=== PATIENT | female | born 1960 | race Caucasian/White ===

== ENCOUNTER 2018-02-18 13:07 | Observation (INO) | payer OTHER ==
[~2018-02-18] VITALS: Ht 162.6 cm; Wt 84.0 kg
[~2018-02-18 13:07] MED LIST: CLON1TAB3 PO; ESCI1TAB10 PO
[2018-02-18] MEDS ORDERED: ONDANSETRON INJ 2 MG/ML 2 ML VIAL IV STA (13:20)
[2018-02-18] MEDS ORDERED: ASPIRIN 81 MG CHEW PO STA (13:20)
[2018-02-18] MEDS ORDERED: SODIUM CHLORIDE 0.9% 1000ML 500 ML IV STA (13:20)
[2018-02-18] MEDS ORDERED: ACETAMINOPHEN 500 MG TAB PO STA (13:22)
[2018-02-18] MEDS ORDERED: NITROGLYCERIN 2% OINTMENT 30GM TUBE EXT ONE (13:30)
--- NOTE | 2018-02-18 13:46 | EMERGENCY ROOM VISIT NOTE ---
History Report prepared by Rose: Milton Orona Under the Supervision of: Dr. Sonido Carter M.D. First contact with patient: 13:14 Chief Complaint: CHEST PAIN Stated Complaint: CHEST TIGHTNESS, DIZZY History of Present Illness The patient is a 57 year old female who presents to the Emergency Room with complaints of constant chest pain that began a couple of days ago. She rates her pain as a 7/10 in severity. She reports her pain is worsened with standing up and relieved with laying down, The patient states that five days ago, when she was on a cruise, she felt she had "a ball of acid in her throat that would not go down". She reports that a day later she noticed that her stool was bright red in appearance. She states that since then, she has been experiencing dizziness, lightheadedness, nausea, left shoulder pain, left jaw pain, and shortness of breath. The patient states that she has also been experiencing a chest heaviness that is worsened with standing up and moving around. The reports that she returned from her cruise two days ago and her symptoms persisted. The patient states that she took an antacid for her symptoms without any relief. She states that she is currently experiencing a headache that is a 10/10 in severity. The patient states that she has not taken any medication today. She denies trauma, injury, vomiting, diarrhea, a history of GI bleeding, and a history of heart problems. Source of History: patient Onset: a couple of days ago Position: chest Symptom Intensity: 7/10 Quality: other (heavy) Timing: constant Modifying Factors (Worsening): other (standing up) Modifying Factors (Relieving): other (antacid) Associated Symptoms: + headache, + SOB, + nausea, + hematochezia, No vomiting, No diarrhea Note: Associated symptoms: left jaw pain, dizziness, lightheadedness, and "acid in throat" Review of Systems See HPI for pertinent positives & negatives. A total of 10 systems reviewed and were otherwise negative. Past Medical & Surgical Medical Problems: (1) Anxiety (2) Cervical strain (3) Chest pain (4) Closed head injury (5) Dizziness (6) Facial injury (7) History of depression (8) Restless leg syndrome Surgical Problems: (1) Hx of arthroscopy of right knee (2) Hx of laparoscopy (3) Hx of rotator cuff surgery (4) Hx of tonsillectomy Family History Cancer Social History Smoking Status: Current Every Day Smoker Alcohol Use: occasionally Marital Status: Housing Status: lives with family Occupation Status: unemployed Current/Historical Medications Scheduled Clonazepam (Clonazepam), 1 TAB PO HS Escitalopram Oxalate (Lexapro), 1 TAB PO DAILY Escitalopram Oxalate (Escitalopram Oxalate), 1 TAB PO DAILY Multiple Vitamin (Multivitamin), 1 TAB PO DAILY Allergies Coded Allergies: Sulfa Drugs (Verified Allergy, Unknown, HIVES, 02/18/18) Physical Exam Vital Signs Date Time Temp Pulse Resp B/P (MAP) Pulse Ox O2 Delivery O2 Flow Rate FiO2 02/18/18 15:15 75 121/69 94 Room Air 02/18/18 14:15 72 16 127/70 96 Room Air 02/18/18 13:53 72 20 139/94 93 Room Air 02/18/18 13:50 94 Room Air 02/18/18 13:09 36.6 80 18 155/93 96 Room Air Physical Exam GENERAL: Patient is in no acute distress. HEENT: No acute trauma, normocephalic atraumatic, mucous membranes moist, no nasal congestion, no scleral icterus. NECK: No stridor, no adenopathy, no meningismus, trachea is midline. LUNGS: Clear to auscultation bilaterally, no wheeze, no rhonchi, breath sounds equal. HEART: Without murmurs gallops or rubs, regular rate and rhythm. ABDOMEN: Soft, mildly tender in the epigastric, bowel sounds positive, no hernias, no peritonitis. EXTREMITIES: No cyanosis or edema, full range of motion of all the joints without pain or difficulty, no signs for acute trauma. NEUROLOGIC: Oriented x 3, no acute motor or sensory deficits, no focal weakness. SKIN: No rash, no jaundice, no diaphoresis. Medical Decision & Procedures ER Provider Diagnostic Interpretation: X-ray results as stated below per interpretation by me and the radiologist: CHEST ONE VIEW PORTABLE CLINICAL HISTORY: 57 years-old Female presenting with CHEST PAIN, chest tightness. TECHNIQUE: Portable upright AP view of the chest was obtained. COMPARISON: None. FINDINGS: Cardiomediastinal silhouette normal. Lungs and pleural spaces clear. Osseous structures normal. Upper abdomen normal. IMPRESSION: 1. No acute cardiopulmonary disease. Electronically signed by: Sandor Bentley M.D. 02/18/2018 1:43 PM Dictated Date/Time: 02/18/2018 1:42 PM Laboratory Results 02/18/18 13:55 02/18/18 13:55 Test 02/18/18 13:55 Red Blood Count 5.17 M/uL (4.2-5.4) Mean Corpuscular Volume 87.4 fL (80-100) Mean Corpuscular Hemoglobin 30.4 pg (25-34) Mean Corpuscular Hemoglobin Concent 34.7 g/dl (32-36) RDW Standard Deviation 45.6 fL (36.4-46.3) RDW Coefficient of Variation 14.2 % (11.5-14.5) Mean Platelet Volume 10.1 fL (7.4-10.4) Prothrombin Time 9.7 SECONDS (9.0-12.0) Prothromb Time International Ratio 0.9 (0.9-1.1) Activated Partial Thromboplast Time 27.7 SECONDS (21.0-31.0) Partial Thromboplastin Ratio 1.1 Anion Gap 7.0 mmol/L (3-11) Est Creatinine Clear Calc Drug Dose 84.9 ml/min Estimated GFR () 97.7 Estimated GFR (Non- 84.3 BUN/Creatinine Ratio 21.0 (10-20) Calcium Level 9.0 mg/dl (8.5-10.1) Total Bilirubin 0.2 mg/dl (0.2-1) Aspartate Amino Transf (AST/SGOT) 15 U/L (15-37) Alanine Aminotransferase (ALT/SGPT) 12 U/L (12-78) Alkaline Phosphatase 98 U/L (45-117) Troponin I < 0.015 ng/ml (0-0.045) Total Protein 6.7 gm/dl (6.4-8.2) Albumin 3.3 gm/dl (3.4-5.0) Globulin 3.4 gm/dl (2.5-4.0) Albumin/Globulin Ratio 1.0 (0.9-2) Lipase 191 U/L (73-393) Laboratory results reviewed by me. Medications Administered Medications (Trade) Dose Ordered Sig/Marjorie Route Start Time Stop Time Status Last Admin Dose Admin Sodium Chloride 500 ml @ 999 mls/hr Q31M STAT IV 02/18/18 13:20 02/18/18 13:50 DC 02/18/18 13:20 999 MLS/HR Ondansetron HCl (Zofran Inj) 4 mg NOW STAT IV 02/18/18 13:20 02/18/18 13:22 DC 02/18/18 13:52 4 MG Nitroglycerin (Nitroglycerin 2% Oint) 0.5 inch NOW ONCE EXT 02/18/18 13:30 02/18/18 17:05 DC 02/18/18 13:30 0.5 INCH Aspirin (Aspirin Chew) 324 mg NOW STAT PO 02/18/18 13:20 02/18/18 13:22 DC 02/18/18 13:52 324 MG Acetaminophen (Tylenol Tab) 1,000 mg NOW STAT PO 02/18/18 13:22 02/18/18 13:23 DC 02/18/18 14:05 1,000 MG ECG Per My Interpretation Indication: chest pain Rate (beats per minute): 72 Rhythm: normal sinus Findings: other (no PVCs, no ST elevation) ED Course 1315: The patient was evaluated in room A04B. A complete history and physical exam was performed. 1320: Ordered Aspirin 324 mg PO, Zofran Injection 4 mg IV, Sodium Chloride 500 ml @ 999 mls/hr IV. 1322: Ordered Tylenol Tab 1000 mg PO. 1330: Ordered Nitroglycerin 0.5 inch EXT. 1443: I reevaluated the patient and she feels improved since administration of medication. 1449: I discussed the patient's case with Jodie Montana PA-C Hospitalist. She understands the patient's condition and agrees to accept the patient. The patient will be further evaluated. Medical Decision The patient is a 57 year old female who presents to the Emergency Room with complaints of constant chest pain that began a couple of days ago. Differential diagnoses considered include cardiac ischemia, angina, anxiety, gastritis, reflux, ulcer, upper or lower GI bleeding, anemia, pneumonia, and IL. There is no leukocytosis or concerning anemia. No significant electrolyte abnormality, kidney failure, hepatitis or pancreatitis. EKG shows a normal sinus rhythm, no acute ischemia. Cardiac enzyme testing 1 is not consistent with acute cardiac injury. Chest x-ray does not show mediastinal widening, pneumonia or pneumothorax. The patient was given oral Zofran, oral aspirin and Nitropaste. She received oral Tylenol. She feels markedly improved, her chest pain is gone. The patient presents with precordial chest pain. I do think further cardiac workup is warranted. I spoke with the patient and case management. The on- call hospitalist was consulted and the case was discussed. Patient was reassured that her hemoglobin was not low. The blood in the stool is likely from the lower GI tract and likely unrelated to the precordial chest pain. Medication Reconcilliation Current Medication List: was personally reviewed by me Blood Pressure Screening Patient's blood pressure: Elevated blood pressure Referred to Hospitalist Consults Time Called: 1445 Consulting Physician: Jodie Montana PA-C Hospitalist Returned Call: 1449 I discussed the patient's case with Jodie Montana PA-C Hospitalist. She understands the patient's condition and agrees to accept the patient. The patient will be further evaluated. Impression Primary Impression: Precordial chest pain Scribe Attestation The scribe's documentation has been prepared under my direction and personally reviewed by me in its entirety. I confirm that the note above accurately reflects all work, treatment, procedures, and medical decision making performed by me. Departure Information Dispostion Being Evaluated By Hospitalist Referrals Naeem Patterson M.D.([facility]) (PCP) Patient Instructions My [facility]
[2018-02-18 14:21] LABS: HEMATOCRIT 45.2 % (37-47); HEMOGLOBIN 15.7 g/dL (12.0-16.0); MEAN CELL VOLUME 87.4 fL (80-100); MEAN CORPUSCULAR HEMOGLOBIN 30.4 pg (25-34); MEAN CORPUSCULAR HGB CONC 34.7 g/dl (32-36); MEAN PLATELET VOLUME 10.1 fL (7.4-10.4); PLATELET COUNT 276 K/uL (130-400); RED CELL DISTRIBUTION WIDTH CV 14.2 % (11.5-14.5); RED CELL DISTRIBUTION WIDTH SD 45.6 fL (36.4-46.3); WHITE BLOOD COUNT 8.66 K/uL (4.8-10.8)
[2018-02-18 14:22] LABS: INR 0.9 (0.9-1.1); PTT PATIENT 27.7 SECONDS (21.0-31.0)
[2018-02-18 14:28] LABS: ALBUMIN 3.3 gm/dl (3.4-5.0); ALT/SGPT 12 U/L (12-78); BLOOD UREA NITROGEN 17 mg/dl (7-18); CARBON DIOXIDE 26 mmol/L (21-32); CREATININE 0.79 mg/dl (0.60-1.20); GLUCOSE 95 mg/dl (70-99); LIPASE 191 U/L (73-393); POTASSIUM 3.8 mmol/L (3.5-5.1); SODIUM 138 mmol/L (136-145)
[2018-02-18 14:34] LABS: ALKALINE PHOSPHATASE 98 U/L (45-117); AST/SGOT 15 U/L (15-37); TOTAL PROTEIN 6.7 gm/dl (6.4-8.2)
[2018-02-18] MEDS ORDERED: GI COCKTAIL PO STA (15:43)
[2018-02-18] MEDS ORDERED: MAGNESIUM HYDROXIDE SUSP 30 ML UDC PO PRN (15:45)
[2018-02-18] MEDS ORDERED: ONDANSETRON INJ 2 MG/ML 2 ML VIAL IV PRN (15:45)
[2018-02-18] MEDS ORDERED: NITROGLYCERIN 0.4 MG SL PER TAB CHARGE SL PRN (15:45)
[2018-02-18] MEDS ORDERED: ALUMINUM/MAGNESIUM/SIMETH (MAALOX MAX) 30 ML UDC PO PRN (15:45)
[2018-02-18] MEDS ORDERED: KLN5 PO (15:48)
[2018-02-18] MEDS ORDERED: MULTTAB58 PO (15:48)
[2018-02-18] MEDS ORDERED: LXP10 PO (15:48)
--- NOTE | 2018-02-18 15:55 | DIAGNOSTIC IMAGING REPORT ---
CT SCAN OF THE BRAIN WITHOUT IV CONTRAST CLINICAL HISTORY: Headache. Dizziness. COMPARISON STUDY: CT of the brain dated 06/06/2014. TECHNIQUE: Unenhanced axial CT scan of the brain is performed from the vertex to the skull base. A dose lowering technique was utilized adhering to the principles of ALARA. CT DOSE: 614.27 mGy.cm FINDINGS: Brain parenchyma: The brain parenchyma is normal in appearance. There is no hemorrhage, mass effect, or evidence of acute territorial ischemia by CT criteria. Lincoln-white matter is preserved. No extra-axial fluid collection is seen. Ventricles, sulci, cisterns: Normal in configuration. Intracranial vasculature: The visualized intracranial vasculature at the skull base is normal in appearance. Calvarium: Unremarkable. Sinuses and mastoids: The visualized paranasal sinuses are clear. The mastoid air cells are well pneumatized. Orbits: The bony orbits are grossly intact. IMPRESSION: No acute intracranial abnormality. Electronically signed by: Sonido Boss M.D. 02/18/2018 3:53 PM Dictated Date/Time: 02/18/2018 3:51 PM
[2018-02-18] MEDS ORDERED: KETOROLAC TROMETHAMINE 30 MG/ML VIAL IV PRN (16:00)
[2018-02-18] MEDS ORDERED: ALUMINUM/MAGNESIUM SUSP 30 ML UDC ONE (16:06)
[2018-02-18] MEDS ORDERED: LIDOCAINE HCL 2% VISC SOLN 20 ML UDC ONE (16:07)
[2018-02-18 16:14] VITALS: O2SAT 93
[2018-02-18 16:15] VITALS: BP 123/76; PULSE 65; TEMP 36.6; Ht 162.6 cm; Wt 84.0 kg
--- NOTE | 2018-02-18 16:44 | History and Physical ---
History & Physical Date & Time of Service: Feb 18, 2018 at 15:48 Chief Complaint: Chest Tightness, Dizzy Primary Care Physician: Naeem Patterson M.D.([place]) History of Present Illness Source: patient, clinic records, hospital records Pt is 57 y/o F with PMH ROS, depression presented to ER with complaint of chest pain 5 days. Patient reports on 02/08/18 had flight to [place] and went on a cruise to the [facility]. 5 days into the cruise she developed "ball sensation" patient points to mid upper chest. She also reports sensation of increased acid and increased burping. Patient reports also with associated chest heaviness. States symptoms more prominent at night and tried taking ranitidine a couple of times with a little relief, but not complete relief. denies any shortness of breath or cough, or pleuritic chest pain. Denies food bolus or dysphagia or dysphasia. Denies history of GERD. Patient reports drinks 4 cups coffee daily. Does not usually consume alcohol however on the cruise was drinking 5-10 mixed drinks daily. Reports was eating very rich foods that she does not typically consume. Patient also complaining of frontal headache, dizziness with standing, and nausea 2 days. Denies vomiting. Used scopolamine patch while on cruise. History of RLS, states was walking a lot while on vacation in since having aching of bilateral hips down to bilateral legs and increased restless leg symptoms at night. Patient states did not sleep well on a cruise secondary to restless legs. Also is carrying her luggage. Denies any injury, or falls. Patient states was having constipation and 3 days ago was able to have a BM however straining to have BM and when wipes noticed bright red blood on toilet paper and blood mixing with stool. Has since been having daily BMs and denies any melena, hematochezia, diarrhea. Denies any lower extremity edema. Denies history of CAD or blood clots. Denies fever/chills, diaphoresis, vomiting, syncope, vision changes, neck pain, orthopnea, palpitations, cough, sore throat, choking, otalgia, rhinorrhea, abdominal pain, rectal pain, paresthesias, weakness, extremity weakness, extremity edema, rashes, urinary symptoms, weight loss, night sweats. Denies ill contacts. In ER patient given aspirin, Zofran, 500 mL NSS, Tylenol, nitro half inch paste. Patient reports less chest tightness now, still with headache. Past Medical/Surgical History Medical Problems: (1) Anxiety Status: Chronic (2) Cervical strain Status: Resolved (3) Closed head injury Status: Resolved (4) Facial injury Status: Resolved (5) History of depression Status: Chronic (6) Restless leg syndrome Status: Chronic Surgical Problems: (1) Hx of arthroscopy of right knee Status: Resolved (2) Hx of laparoscopy Permanent Comment: 2005 - removal adhesions Status: Resolved (3) Hx of rotator cuff surgery Status: Resolved (4) Hx of tonsillectomy Status: Resolved Family History Cancer Social History Smoking Status: Current Every Day Smoker (5 cigarettes daily, was smoking 0.75ppd x 26 years) Smokeless Tobacco Use: No Alcohol Use: socially Drug Use: none Marital Status: Housing status: lives with significant other Occupational Status: unemployed Allergies Coded Allergies: Sulfa Drugs (Verified Allergy, Unknown, HIVES, 02/18/18) Home Medications Scheduled Clonazepam (Clonazepam), 1 TAB PO HS Escitalopram Oxalate (Lexapro), 1 TAB PO DAILY Escitalopram Oxalate (Escitalopram Oxalate), 1 TAB PO DAILY Multiple Vitamin (Multivitamin), 1 TAB PO DAILY Review of Systems See HPI for pertinent positives & negatives. All other systems reviewed and were otherwise negative Physical Exam Vital Signs Date Time Temp Pulse Resp B/P (MAP) Pulse Ox O2 Delivery O2 Flow Rate FiO2 02/18/18 15:15 75 121/69 94 Room Air 02/18/18 14:15 72 16 127/70 96 Room Air 02/18/18 13:53 72 20 139/94 93 Room Air 02/18/18 13:50 94 Room Air 02/18/18 13:09 36.6 80 18 155/93 96 Room Air General Appearance: WD/WN, no apparent distress Head: normocephalic, atraumatic Eyes: normal inspection, PERRL, EOMI, sclerae normal ENT: hearing grossly normal, pharynx normal, + pertinent finding (mucous membranes moist) Neck: supple, no JVD, trachea midline Respiratory/Chest: lungs clear, normal breath sounds, no respiratory distress, + pertinent finding (mild tenderness to palpation mid to upper sternum, no rashes to chest noted) Cardiovascular: regular rate, rhythm, no murmur, normal peripheral pulses Abdomen/GI: normal bowel sounds, non tender, soft Extremities/Musculoskelatal: normal inspection, no calf tenderness, normal capillary refill, no pedal edema, normal range of motion, non-tender Neurologic/Psych: no motor/sensory deficits, alert, normal mood/affect, oriented x 3 Skin: normal color, warm/dry Diagnostics Laboratory Results Results Past 24 Hours Test 02/18/18 13:55 02/18/18 15:38 Range/Units White Blood Count 8.66 4.8-10.8 K/uL Red Blood Count 5.17 4.2-5.4 M/uL Hemoglobin 15.7 12.0-16.0 g/dL Hematocrit 45.2 37-47 % Mean Corpuscular Volume 87.4 80-100 fL Mean Corpuscular Hemoglobin 30.4 25-34 pg Mean Corpuscular Hemoglobin Concent 34.7 32-36 g/dl RDW Standard Deviation 45.6 36.4-46.3 fL RDW Coefficient of Variation 14.2 11.5-14.5 % Platelet Count 276 130-400 K/uL Mean Platelet Volume 10.1 7.4-10.4 fL Prothrombin Time 9.7 9.0-12.0 SECONDS Prothromb Time International Ratio 0.9 0.9-1.1 Activated Partial Thromboplast Time 27.7 21.0-31.0 SECONDS Partial Thromboplastin Ratio 1.1 Sodium Level 138 136-145 mmol/L Potassium Level 3.8 3.5-5.1 mmol/L Chloride Level 106 98-107 mmol/L Carbon Dioxide Level 26 21-32 mmol/L Anion Gap 7.0 3-11 mmol/L Blood Urea Nitrogen 17 7-18 mg/dl Creatinine 0.79 0.60-1.20 mg/dl Est Creatinine Clear Calc Drug Dose 84.9 ml/min Estimated GFR () 97.7 Estimated GFR (Non- 84.3 BUN/Creatinine Ratio 21.0 10-20 Random Glucose 95 70-99 mg/dl Calcium Level 9.0 8.5-10.1 mg/dl Total Bilirubin 0.2 0.2-1 mg/dl Aspartate Amino Transf (AST/SGOT) 15 15-37 U/L Alanine Aminotransferase (ALT/SGPT) 12 12-78 U/L Alkaline Phosphatase 98 45-117 U/L Troponin I < 0.015 0-0.045 ng/ml Total Protein 6.7 6.4-8.2 gm/dl Albumin 3.3 3.4-5.0 gm/dl Globulin 3.4 2.5-4.0 gm/dl Albumin/Globulin Ratio 1.0 0.9-2 Lipase 191 73-393 U/L Diagnostic Radiology CXR: IMPRESSION: 1. No acute cardiopulmonary disease. CT HEAD: IMPRESSION: No acute intracranial abnormality. EKG EKG: NSR, rate 72, no ST elevation noted read by cardiology: Normal sinus rhythm Normal ECG When compared with ECG of 11-DEC-2013 13:03, No significant change was found Confirmed by MICK GONZALES ([id number]) on 02/18/2018 2:59:07 PM Impression Assessment and Plan CHEST PAIN R/O ACS. Risk factors: tobacco use DDX: GERD, anxiety, musculoskeletal Pt with mid sternal CP x 5 days with associated "lump" sensation. Initial troponin negative. EKG without ST elevation. In ER given ASA, zofran, 500ml NSS , Tylenol and nitro 0.5" paste. Pt reports decreased CP. Suspect GERD with pt symptoms and recent increased ETOH use -GI cocktail trial -Pending D-dimer -Monitor Vitals -Repeat EKG in am -Will trend troponin -echo -lipid panel in am -ASA -Nitro prn CP and repeat EKG for CP -Maalox prn heartburn -pepcid LOWERY/DIZZY Pt reports frontal LOWERY and dizziness with standing x 2 days. Given Tylenol in ER without much relief of LOWERY. Electrolytes WNL. Hgb: 15 -Negative CT head -orthostatics ordered -IVF -morphine prn pain HEMATOCHEZIA Pt with bright red blood noted on toilet paper and mixed in with stool 3 days ago after constipation and straining to have BM. Since with normal BM's without melena or hematochezia. Suspect hemorrhoidal bleeding with constipation. Hgb: 15 today. -Hemoccult stool -monitor CBC DEPRESSION -continue lexapro RLS -continue klonopin HS prn restless legs DVT Prophylaxis -lovenox SQ Disposition admit tele Full Code Follows with Dr Patterson for routine care Pt was seen with Dr Brewer. See addendum Attending Note: Patient is a 57 yr yr female who was recently on a Cruise presents with atypical chest pain which improved with NTG and Antacids associated with dizziness, nausea, neck discomfort. Patient was drinking alcohol and Coffee on a daily basis while on the cruise and is a current smoker. Denies any CAD in the past. Also reports mild epigastric abdominal pain, increased burping, and 1 episode of noticing bright red blood on toilet paper, stools after straining secondary to constipation. She reports frontal headache 10/10, no change in vision, which is worse after NTG patch but denies any history of migraine. Physical Exam: Vitals signs as noted above General Appearance:Moderately built and nourished, no apparent distress Head: normocephalic, Atraumatic Eyes: normal inspection, EOMI, PERRL Neck: supple, Trachea midline Respiratory/Chest: Normal breath sounds, CTA, No accessory muscle use Cardiovascular: S1, S2, No murmur Abdomen/GI:Soft, mild epigastric tender, Bowel sounds present Extremities/Musculoskelatal:normal inspection, no edema Neurologic/Psych:AAOX3, grossly no focal neurological deficits Skin:normal color,warm Assessment and Plan: Atypical Chest pain: R/O ACS DD: GERD, costochondritis D-Dimer pending CXR: No acute cardiopulmonary disease 1st Troponin negative Trend cardiac enzymes Check ECHO ASA Consider Cardiology eval if necessary Hematochezia: Likely 2/2 Hemorrhoids No active bleeding Hb stable May need colonoscopy as outpatient I personally reviewed the record. Patient is interviewed and examined at bedside. Patient's care is coordinated with Evelin PICKARD. Please refer to the documentation above for details of patient's presentation and for discussion of other issues. Resuscitation Status Full Code VTE Prophylaxis Will order VTE Prophylaxis: Yes Additional Copies To Naeem Patterson M.D. ([facility])
[2018-02-18] MEDS ORDERED: SODIUM CHLORIDE 0.9% 1000ML 1,000 ML IV SCH (16:45)
[2018-02-18] MEDS ORDERED: ALUMINUM/MAGNESIUM SUSP 18 ML, LIDOCAINE HCL 2% VISCOUS SOLN 6 ML, BARCODE IDENTIFIER 1 EA PO ONE ×2 (16:45)
[2018-02-18] MEDS ORDERED: ENOXAPARIN 40 MG/0.4 ML SYR SC SCH (17:00)
[2018-02-18] MEDS ORDERED: MoRPHine SULFATE 2 MG/ML CARP IV PRN (17:15)
[2018-02-18] MEDS ORDERED: FAMOTIDINE IV INJ 20 MG in DEXTROSE 5% 100ML 100 ML IV SCH (18:00)
[2018-02-18] MEDS ORDERED: IV FLUIDS COMPLETED PRN (18:15)
[2018-02-18 19:25] VITALS: BP_SYST 136; BP_SYST 138; BP_SYST 144; BP_DIAS 86; BP_DIAS 89; BP_DIAS 92; PULSE 70; TEMP 36.9; O2SAT 96
[2018-02-18] MEDS: ACETAMINOPHEN 325 MG TAB PO PRN (19:36)
[2018-02-18] MEDS ORDERED: CLONAZEPAM 0.5 MG TAB PO SCH (21:00)
[2018-02-19 00:28] VITALS: BP 110/61; PULSE 69; TEMP 36.5; O2SAT 95
[2018-02-19] MEDS: ACETAMINOPHEN 325 MG TAB PO PRN (02:49)
[2018-02-19 03:49] VITALS: BP 127/67; PULSE 76; TEMP 36.7; O2SAT 95
[2018-02-19 05:43] LABS: HEMATOCRIT 43.2 % (37-47); HEMOGLOBIN 14.4 g/dL (12.0-16.0); MEAN CELL VOLUME 88.2 fL (80-100); MEAN CORPUSCULAR HEMOGLOBIN 29.4 pg (25-34); MEAN CORPUSCULAR HGB CONC 33.3 g/dl (32-36); PLATELET COUNT 268 K/uL (130-400); RED CELL DISTRIBUTION WIDTH CV 14.3 % (11.5-14.5); RED CELL DISTRIBUTION WIDTH SD 46.1 fL (36.4-46.3); WHITE BLOOD COUNT 8.23 K/uL (4.8-10.8)
[2018-02-19] MEDS ORDERED: FAMOTIDINE IV INJ 20 MG in SYRINGE 3 ML IV SCH (06:00)
[2018-02-19 06:18] LABS: CALCIUM 8.6 mg/dl (8.5-10.1); CREATININE 0.76 mg/dl (0.60-1.20); POTASSIUM 4.2 mmol/L (3.5-5.1)
[2018-02-19 07:37] VITALS: BP 124/74; PULSE 69; TEMP 36.7; O2SAT 94
[2018-02-19] MEDS ORDERED: MULTIVITAMIN TAB PO SCH (09:00)
[2018-02-19] MEDS ORDERED: ESCITALOPRAM OXALATE 20 MG TAB PO SCH (09:00)
[2018-02-19] MEDS ORDERED: ASPIRIN 81 MG ECTAB PO SCH (09:00)
[2018-02-19] MEDS ORDERED: ESCITALOPRAM OXALATE 10 MG TAB PO SCH (09:00)
--- NOTE | 2018-02-19 09:40 | ECHOCARDIOGRAM REPORT ---
*NOTICE TO RECEIVING [employer] This information is strictly Confidential and protected under [place] law. [place] law prohibits you from making any further disclosure of this information unless further disclosure is expressly permitted by the written consent of the person to whom it pertains or is authorized by law. A general authorization for the release of medical or other information is not sufficient for this purpose. Hospital accepts no responsibility if the information is made available to any other person, INCLUDING THE PATIENT. Interpretation Summary * Name: WILLIAMS BURT Study Date: 02/19/2018 07:35 AM BP: 123/76 mmHg * Patient Location: C.2E\S\E204\S\1 HR: 65 * : 1960 (M/d/yyyy) Gender: Female Height: 64 in * Age: 57 yrs Ethnicity: [place] Weight: 187 lb * Ordering Physician: Evelin Dai * Referring Physician: Self, Referred * Performed By: Ernestine Nicole RDCS * * Reason For Study: Chest pain * BSA: 1.9 m2 * -- Conclusions -- * Normal LV chamber size and wall thickness. * Normal LV systolic function, EF 60-65%. * No segmental left ventricular wall motion abnormalities are noted. * Normal diastolic function. * Mild aortic valve sclerosis without stenosis. * Mild mitral annular calcificatons. Procedure Details * A complete two-dimensional transthoracic echocardiogram was performed (2D, M-mode, Doppler and color flow Doppler). Left Ventricle * The left ventricle is normal in size. * There is normal left ventricular wall thickness. * Ejection Fraction = 60-65%. * Left ventricular systolic function is normal. * No segmental left ventricular wall motion abnormalities are noted. * The left ventricular wall motion is normal. Right Ventricle * The right ventricular cavity size is normal (basal dimension <4.2 cm in right ventricular apical 4-chamber view). * The right ventricular systolic function is normal as assessed by tricuspid annular plane systolic excursion (TAPSE) (normal >1.5 cm). Atria * The left atrial size is normal. * Right atrial size is normal. * No ASD detected; PFO is not assessed. Mitral Valve * There is mild mitral annular calcification. * There is no mitral valve stenosis. * There is no mitral regurgitation noted. Tricuspid Valve * The tricuspid valve is normal in structure and function. Aortic Valve * The aortic valve is trileaflet. * Aortic valve sclerosis mild, without significant aortic valvular stenosis. * There is no significant aortic regurgitation. Pulmonic Valve * The pulmonary valve is not well seen, but the Doppler examination is normal without significant regurgitation or stenosis. Great Vessels * The aortic root and proximal ascending aorta are normal sized. Pericardium/Pleural * There is no pericardial effusion. Left Ventricular Diastolic Function * Pulse wave TDI of the anterior and posterior mitral annulas demonstrates normal LV relaxation MMode 2D Measurements and Calculations IVSd 0.78 cm LVIDd 4.2 cm LVIDs 2.7 cm LVPWd 1.1 cm IVS/LVPW 0.72 FS 35.2 % EDV(Teich) 78.2 ml ESV(Teich) 27.4 ml EF(Teich) 64.9 % EDV(cubed) 73.6 ml ESV(cubed) 20.0 ml EF(cubed) 72.8 % LV mass(C)d 124.0 grams LV mass(C)dI 65.2 grams/m\S\2 SV(Teich) 50.8 ml SI(Teich) 26.7 ml/m\S\2 SV(cubed) 53.6 ml SI(cubed) 28.2 ml/m\S\2 Ao root diam 2.8 cm Ao root area 6.2 cm\S\2 ACS 2.0 cm LA dimension 3.2 cm asc Aorta Diam 2.9 cm LA/Ao 1.1 LVOT diam 2.0 cm LVOT area 3.1 cm\S\2 LVAd ap4 25.8 cm\S\2 LVLd ap4 7.7 cm EDV(MOD-sp4) 70.4 ml EDV(sp4-el) 73.5 ml LVAs ap4 14.4 cm\S\2 LVLs ap4 6.2 cm ESV(MOD-sp4) 28.2 ml ESV(sp4-el) 28.7 ml EF(MOD-sp4) 60.0 % EF(sp4-el) 61.0 % LVAd ap2 26.4 cm\S\2 LVLd ap2 6.7 cm EDV(MOD-sp2) 86.2 ml EDV(sp2-el) 88.1 ml LVAs ap2 14.9 cm\S\2 LVLs ap2 5.4 cm ESV(MOD-sp2) 34.5 ml ESV(sp2-el) 35.1 ml EF(MOD-sp2) 59.9 % EF(sp2-el) 60.2 % LVLd %diff -14.30 % EDV(MOD-bp) 84.7 ml LVLs %diff -15.17 % ESV(MOD-bp) 33.4 ml EF(MOD-bp) 60.5 % SV(MOD-sp4) 42.2 ml SI(MOD-sp4) 22.2 ml/m\S\2 SV(MOD-sp2) 51.7 ml SI(MOD-sp2) 27.2 ml/m\S\2 SV(MOD-bp) 51.3 ml SI(MOD-bp) 27.0 ml/m\S\2 SV(sp4-el) 44.8 ml SI(sp4-el) 23.6 ml/m\S\2 SV(sp2-el) 53.0 ml SI(sp2-el) 27.9 ml/m\S\2 Doppler Measurements and Calculations MV E max prudencio 90.7 cm/sec MV A max prudencio 75.2 cm/sec MV E/A 1.2 MV dec time 0.23 sec Ao V2 max 144.4 cm/sec Ao max PG 8.3 mmHg Ao max PG (full) 4.9 mmHg LEVAR(V,A) 2.0 cm\S\2 LEVAR(V,D) 2.0 cm\S\2 LV V1 max PG 3.4 mmHg LV V1 max 92.6 cm/sec PA V2 max 77.4 cm/sec PA max PG 2.4 mmHg PA acc slope 193.7 cm/sec\S\2 PA acc time 0.23 sec PI max prudencio 191.4 cm/sec PI max PG 14.7 mmHg PI dec slope 291.9 cm/sec\S\2 PI P1/2t 192.1 msec TR max prudencio 172.3 cm/sec PA pr(Accel) -22.41 mmHg
[2018-02-19 11:42] VITALS: BP 116/73; PULSE 69; TEMP 36.8; O2SAT 95
--- NOTE | 2018-02-19 11:42 | Gastrointestinal Consultation ---
Gastrointestinal Consultation Date of Consultation: Feb 19, 2018 Attending Physician: Clyde Song Consulting Physician: Fabian Hay Reason for Consultation: Dysphagia History of Present Illness Patient is a 57 year old female w PMHx of anxiety, cervical strain, head/facial injury, RLS who presented to ED w c/o chest tightness and dizziness. She was in middle of a cruise to the [facility] and felt there's a "ball sensation" on neck with increased reflux and burping. She had associated chest tightness as well. Cardiac workup so far negative. In the cruise, she tried taking Ranitidine for suspected GERD symptoms and it did make her symptoms get felt a bit better but not completely resolved. She never had any hx of dysphagia, food bolus before. Denies odynophagia, abd pain, n/v, bowel habit changes. She managed to tolerate eating eggs w/o chocking/coughing this morning. Past Medical/Surgical History Medical Problems: (1) Precordial chest pain Status: Acute Past Medical History: See above. Past Surgical History: R knee arthroscopy, rotator cuff surgery, tonsillectomy Family History Cancer Social History Smoking Status: Current Every Day Smoker (5 cigarettes daily, was smoking 0.75ppd x 26 years) Alcohol Use: occasionally Drug Use: none Marital Status: Housing Status: lives with family Occupation Status: unemployed Allergies Coded Allergies: Sulfa Drugs (Verified Allergy, Unknown, HIVES, 02/18/18) Current Medications Home Meds and Scripts Medications Dose Route/Sig Max Daily Dose Days Date Category Dose Instructions Multivitamin (Multiple Vitamin) 1 Tab Tab 1 Tab PO DAILY 02/18/18 Reported Escitalopram Oxalate 10 Mg Tab 1 Tab PO DAILY 02/18/18 Reported Clonazepam 0.5 Mg Tab 1 Tab PO HS 02/18/18 Reported prn anxiety or restless legs Lexapro (Escitalopram Oxalate) 20 Mg Tab 1 Tab PO DAILY 08/17/11 Reported Review of Systems Constitutional: No fever, No chills ENT: + see HPI, + trouble swallowing Respiratory: No cough, No shortness of breath Cardiac: No chest pain Abdomen: No pain, No nausea, No vomiting Skin: No rash, No itch, No jaundice Physical Exam Date Time Temp Pulse Resp B/P (MAP) Pulse Ox O2 Delivery O2 Flow Rate FiO2 3/28/18 08:00 Room Air 02/19/18 07:37 36.7 69 16 124/74 (91) 94 Room Air 02/19/18 04:00 Room Air 02/19/18 03:49 36.7 76 16 127/67 (87) 95 02/19/18 00:28 36.5 69 16 110/61 (77) 95 Room Air 02/18/18 23:59 Room Air 02/18/18 20:00 Room Air 02/18/18 19:25 36.9 70 16 138/86 (103) 96 Room Air 136/89 (105) 144/92 (109) 02/18/18 16:15 36.6 65 16 123/76 Room Air 02/18/18 16:14 76 127/79 93 02/18/18 15:15 75 121/69 94 Room Air 02/18/18 14:15 72 16 127/70 96 Room Air 02/18/18 13:53 72 20 139/94 93 Room Air 02/18/18 13:50 94 Room Air 02/18/18 13:09 36.6 80 18 155/93 96 Room Air General Appearance: WD/WN, no apparent distress Eyes: normal inspection, PERRL, EOMI ENT: pharynx normal Neck: supple, no JVD, trachea midline Respiratory/Chest: normal breath sounds, no respiratory distress, no accessory muscle use Cardiovascular: regular rate, rhythm, no edema, no gallop, no murmur Abdomen: normal bowel sounds, non tender, soft Extremities: normal inspection, no pedal edema, no calf tenderness Neurologic/Psych: alert, normal mood/affect, oriented x 3 Skin: normal color, no jaundice, no rash Laboratory Results Last 24 Hours Test 02/18/18 13:55 02/18/18 19:56 02/19/18 02:10 02/19/18 05:15 White Blood Count 8.66 K/uL 8.23 K/uL Red Blood Count 5.17 M/uL 4.90 M/uL Hemoglobin 15.7 g/dL 14.4 g/dL Hematocrit 45.2 % 43.2 % Mean Corpuscular Volume 87.4 fL 88.2 fL Mean Corpuscular Hemoglobin 30.4 pg 29.4 pg Mean Corpuscular Hemoglobin Concent 34.7 g/dl 33.3 g/dl RDW Standard Deviation 45.6 fL 46.1 fL RDW Coefficient of Variation 14.2 % 14.3 % Platelet Count 276 K/uL 268 K/uL Mean Platelet Volume 10.1 fL 10.0 fL Prothrombin Time 9.7 SECONDS Prothromb Time International Ratio 0.9 Activated Partial Thromboplast Time 27.7 SECONDS Partial Thromboplastin Ratio 1.1 D-Dimer 360 ug/L FEU Sodium Level 138 mmol/L 140 mmol/L Potassium Level 3.8 mmol/L 4.2 mmol/L Chloride Level 106 mmol/L 108 mmol/L Carbon Dioxide Level 26 mmol/L 26 mmol/L Anion Gap 7.0 mmol/L 6.0 mmol/L Blood Urea Nitrogen 17 mg/dl 14 mg/dl Creatinine 0.79 mg/dl 0.76 mg/dl Est Creatinine Clear Calc Drug Dose 84.9 ml/min 87.7 ml/min Estimated GFR () 97.7 102.3 Estimated GFR (Non- 84.3 88.3 BUN/Creatinine Ratio 21.0 17.8 Random Glucose 95 mg/dl 89 mg/dl Calcium Level 9.0 mg/dl 8.6 mg/dl Total Bilirubin 0.2 mg/dl Aspartate Amino Transf (AST/SGOT) 15 U/L Alanine Aminotransferase (ALT/SGPT) 12 U/L Alkaline Phosphatase 98 U/L Troponin I < 0.015 ng/ml < 0.015 ng/ml < 0.015 ng/ml Total Protein 6.7 gm/dl Albumin 3.3 gm/dl Globulin 3.4 gm/dl Albumin/Globulin Ratio 1.0 Lipase 191 U/L Hepatitis C Antibody Screen NEG Triglycerides Level 156 mg/dl Cholesterol Level 216 mg/dl HDL Cholesterol 42 mg/dl LDL Cholesterol, Calculated 143 mg/dl VLDL Cholesterol, Calculated 31 mg/dl Cholesterol/HDL Ratio 5.1 Impression Patient is a 57 year old female seen for dysphagia, globus sensation. Also had chest tightness but cardiac workup so far negative. She did have some symptoms relief on Ranitidine. Plan - She will be discharged today. We can plan on EGD eval within a week's time. - May DC on antiacid (Protonix once daily). - Advised to stick to slippery, soft diet. I performed a history and physical examination of the patient, including specifically on physical exam - no abdominal tenderness. I have discussed the patient's management with TRI Mckeon. Please refer to the nurse practitioner's note for the documented findings and plan of care. Patient was on a cruise recently had excessive alcohol use, now reports dysphagia and globus sensation. She wants to go home and prefers the EGD as outpatient. Currently not obstructed and tolerates soft diet. Needs PO PPI and EGD as OP.
[2018-02-19 14:00] VITALS: BP 116/73; PULSE 69; TEMP 36.8; O2SAT 95
--- NOTE | 2018-02-19 15:04 | Progress Note ---
Medicine Progress Note Date & Time of Visit: Feb 19, 2018 at 14:28. Subjective Pt was seen and examined Lying in bed with no distress Pt said that early today when she was eating breakfast she said that the food stuck in his throat and take awhile to go down Pt said that she does not have any chest pain denies any SOB, palpitation, dizziness and SOB Objective Last 8 Hrs Date Time Temp Pulse Resp B/P (MAP) Pulse Ox O2 Delivery O2 Flow Rate FiO2 02/19/18 14:00 36.8 69 16 95 Room Air 02/19/18 12:00 Room Air 02/19/18 11:42 36.8 69 16 116/73 (87) 95 Room Air 02/19/18 08:00 Room Air 02/19/18 07:37 36.7 69 16 124/74 (91) 94 Room Air Physical Exam: General- No acute distress Head- atraumatic Eyes- PERRL, EOMI ENT- oropharynx clear Neck- supple, no JVD Lungs- clear to auscultation Heart- regular rhythm Abdomen- normal bowel sounds, soft Extremities- no calf tenderness Neuro- alert, oriented x 3; PERRL, EOMI Skin- warm & dry Laboratory Results: Last 24 Hours Test 02/18/18 19:56 02/19/18 02:10 02/19/18 05:15 Troponin I < 0.015 ng/ml < 0.015 ng/ml Hepatitis C Antibody Screen NEG White Blood Count 8.23 K/uL Red Blood Count 4.90 M/uL Hemoglobin 14.4 g/dL Hematocrit 43.2 % Mean Corpuscular Volume 88.2 fL Mean Corpuscular Hemoglobin 29.4 pg Mean Corpuscular Hemoglobin Concent 33.3 g/dl RDW Standard Deviation 46.1 fL RDW Coefficient of Variation 14.3 % Platelet Count 268 K/uL Mean Platelet Volume 10.0 fL Sodium Level 140 mmol/L Potassium Level 4.2 mmol/L Chloride Level 108 mmol/L Carbon Dioxide Level 26 mmol/L Anion Gap 6.0 mmol/L Blood Urea Nitrogen 14 mg/dl Creatinine 0.76 mg/dl Est Creatinine Clear Calc Drug Dose 87.7 ml/min Estimated GFR () 102.3 Estimated GFR (Non- 88.3 BUN/Creatinine Ratio 17.8 Random Glucose 89 mg/dl Calcium Level 8.6 mg/dl Triglycerides Level 156 mg/dl Cholesterol Level 216 mg/dl HDL Cholesterol 42 mg/dl LDL Cholesterol, Calculated 143 mg/dl VLDL Cholesterol, Calculated 31 mg/dl Cholesterol/HDL Ratio 5.1 Assessment & Plan ATYPICAL CHEST DISCOMFORT Mostly related to dysphagia Troponinx2 negative EKG showed no ischemic changes LDL 143, Chol 216, HDL 42 Continue aspirin ECHO showed * Normal LV chamber size and wall thickness. * Normal LV systolic function, EF 60-65%. * No segmental left ventricular wall motion abnormalities are noted. * Normal diastolic function. * Mild aortic valve sclerosis without stenosis. * Mild mitral annular calcificatons. Dysphagia Food stuck in her throat this morning GI consulting and recommending to get EGD in a few weeks as an outpatient Speech on board Schedule for video and barium swallow on March 03 @ : Continue ranitidine daily DYSLIPIDEMIA LDL 143 Advised on low cholesterol diet Repeat lipip panel btw 3 to 6 months, if not at goal, will start on statin LOWERY ASSOCIATED WITH DIZZINESS Seems to related to sinus congestion CT head showed no acute intracranial abnormality Stable HEMATOCHEZIA Hgb stable DEPRESSION Continue lexapro RLS Continue klonopin HS prn restless legs DVT Prophylaxis Lovenox SQ Disposition Follow up with Dr. De Santiago (Dr. Patterson Colleague) on 02/25 @ 11:00 AM\ Follow up with Gastro for EGD Schedule for video and barium swallow on March 03 @ : Consultants: Gastro Speech Current Inpatient Medications: Current Inpatient Medications Medications (Trade) Dose Ordered Sig/Marjorie Route Start Time Stop Time Status Last Admin Dose Admin Enoxaparin Sodium (Lovenox Inj) 40 mg Q24H SC 02/18/18 17:00 03/20/18 16:59 02/18/18 17:40 40 MG Acetaminophen (Tylenol Tab) 650 mg Q4H PRN PO 02/18/18 15:45 03/20/18 15:44 02/19/18 02:49 650 MG Al Hydrox/Mg Hydrox/Simethicone (Maalox Max Susp) 15 ml Q4H PRN PO 02/18/18 15:45 03/20/18 15:44 Magnesium Hydroxide (Milk Of Magnesia Susp) 30 ml Q12H PRN PO 02/18/18 15:45 03/20/18 15:44 Ondansetron HCl (Zofran Inj) 4 mg Q6H PRN IV 02/18/18 15:45 03/20/18 15:44 Nitroglycerin (Nitrostat Tab) 0.4 mg UD PRN SL 02/18/18 15:45 03/20/18 15:44 Aspirin (Ecotrin Tab) 81 mg QAM PO 02/19/18 09:00 03/21/18 08:59 02/19/18 07:57 81 MG Clonazepam (Klonopin Tab) 0.5 mg HS PO 02/18/18 21:00 03/20/18 20:59 02/18/18 21:12 0.5 MG Escitalopram Oxalate (Lexapro Tab) 10 mg DAILY PO 02/19/18 09:00 03/21/18 08:59 02/19/18 07:57 10 MG Escitalopram Oxalate (Lexapro Tab) 20 mg DAILY PO 02/19/18 09:00 03/21/18 08:59 02/19/18 07:57 20 MG Multivitamins (Multivitamin Tab) 1 tab DAILY PO 02/19/18 09:00 03/21/18 08:59 02/19/18 07:57 1 TAB Morphine Sulfate (MoRPHine SULFATE INJ) 1 mg Q6 PRN IV 02/18/18 17:15 03/04/18 17:14 Miscellaneous (Iv Fluids Completed) 1 ea PRN PRN N/A 02/18/18 18:15 02/18/19 18:14 Famotidine 20 mg/ Syringe 5 ml @ 2.5 mls/min Q12H IV 02/19/18 06:00 03/21/18 05:59 02/19/18 05:45 2.5 MLS/MIN
[2018-02-19] MEDS ORDERED: RANI150T85 PO (15:31)
--- NOTE | 2018-02-19 15:39 | Discharge Instructions ---
Discharge Instructions Date of Service Feb 19, 2018. Admission Reason for Admission: Chest Pain, Dizziness Discharge Discharge Diagnosis / Problem: Atypical chest discomfort, Dysphagia Discharge Goals Goal(s): Decrease discomfort, Improve function, Improve disease control Activity Recommendations Activity Limitations: resume your previous activity (as tolerated) . Instructions / Follow-Up Instructions / Follow-Up Follow up with Dr. De Santiago (Dr. Patterson Colleague) on 02/25 @ 11:00 AM\\ Follow up with Gastroenterology for Endoscopy Schedule for video and barium swallow on March 03 @ 10:30 AM Continue ranitidine daily Continue soft diet intake for now Avoid food that can trigger your symptoms (chocolate, caffeine, alcohol, acidic and/or spicy foods) Current Hospital Diet Patient's current hospital diet: AHA Diet (Heart Healthy) Discharge Diet Recommended Diet: AHA Diet (Heart Healthy) Pending Studies Studies pending at discharge: no Laboratory Results Lipid Panel Test 02/19/18 05:15 Range/Units Triglycerides Level 156 H 0-150 mg/dl Cholesterol Level 216 H 0-200 mg/dl HDL Cholesterol 42 mg/dl Cholesterol/HDL Ratio 5.1 LDL Cholesterol, Calculated 143 mg/dl Medical Emergencies . Who to Call and When: Medical Emergencies: If at any time you feel your situation is an emergency, please call 911 immediately. . Non-Emergent Contact Non-Emergency issues call your: Primary Care Provider Call Non-Emergent contact if: you have any medication questions . . "Provider Documentation" section prepared by Clyde Song. .
--- NOTE | 2018-02-20 23:44 | Discharge Summary ---
Discharge Summary Date of Service Feb 20, 2018. Discharge Summary Admission Date: Feb 18, 2018 at 15:39 Discharge Date: Feb 19, 2018 Discharge Disposition: Home Principal Diagnosis: ATYPICAL CHEST DISCOMFORT Secondary Diagnoses/Problems: Dysphagia DYSLIPIDEMIA LOWERY ASSOCIATED WITH DIZZINESS HEMATOCHEZIA DEPRESSION RLS Procedures: Interpretation Summary * Name: WILLIAMS BURT Study Date: 02/19/2018 07:35 AM BP: 123/76 mmHg * [place] [facility] [id number] HR: 65 * : 1960 (M/d/yyyy) Gender: Female Height: 64 in * Age: 57 yrs Ethnicity: [place] Weight: 187 lb * Ordering Physician: Evelin Dai * Referring Physician: Self, Referred * Performed By: Ernestine Nicole RDCS * * Reason For Study: Chest pain * BSA: 1.9 m2 * -- Conclusions -- * Normal LV chamber size and wall thickness. * Normal LV systolic function, EF 60-65%. * No segmental left ventricular wall motion abnormalities are noted. * Normal diastolic function. * Mild aortic valve sclerosis without stenosis. * Mild mitral annular calcificatons. Procedure Details * A complete two-dimensional transthoracic echocardiogram was performed (2D, M-mode, Doppler and color flow Doppler). Left Ventricle * The left ventricle is normal in size. * There is normal left ventricular wall thickness. * Ejection Fraction = 60-65%. * Left ventricular systolic function is normal. * No segmental left ventricular wall motion abnormalities are noted. * The left ventricular wall motion is normal. Right Ventricle * The right ventricular cavity size is normal (basal dimension <4.2 cm in right ventricular apical 4-chamber view). * The right ventricular systolic function is normal as assessed by tricuspid annular plane systolic excursion (TAPSE) (normal >1.5 cm). Atria * The left atrial size is normal. * Right atrial size is normal. * No ASD detected; PFO is not assessed. Mitral Valve * There is mild mitral annular calcification. * There is no mitral valve stenosis. * There is no mitral regurgitation noted. Tricuspid Valve * The tricuspid valve is normal in structure and function. Aortic Valve * The aortic valve is trileaflet. * Aortic valve sclerosis mild, without significant aortic valvular stenosis. * There is no significant aortic regurgitation. Pulmonic Valve * The pulmonary valve is not well seen, but the Doppler examination is normal without significant regurgitation or stenosis. Great Vessels * The aortic root and proximal ascending aorta are normal sized. Pericardium/Pleural * There is no pericardial effusion. Left Ventricular Diastolic Function * Pulse wave TDI of the anterior and posterior mitral annulas demonstrates normal LV relaxation Consultations: Gastro Speech Medication Reconciliation New Medications: Ranitidine (Zantac) 150 Mg Tab 150 MG PO DAILY for 30 Days, #30 TAB Continued Medications: Clonazepam (Clonazepam) 0.5 Mg Tab 1 TAB PO HS for Anxiety prn anxiety or restless legs Escitalopram Oxalate (Lexapro) 20 Mg Tab 1 TAB PO DAILY, 0 Refills Escitalopram Oxalate (Escitalopram Oxalate) 10 Mg Tab 1 TAB PO DAILY Multiple Vitamin (Multivitamin) 1 Tab Tab 1 TAB PO DAILY, TAB Admission Information HPI (per Admitting provider): Pt is 57 y/o F with PMH ROS, depression presented to ER with complaint of chest pain 5 days. Patient reports on 02/08/18 had flight to [place] and went on a cruise to the [facility]. 5 days into the cruise she developed "ball sensation" patient points to mid upper chest. She also reports sensation of increased acid and increased burping. Patient reports also with associated chest heaviness. States symptoms more prominent at night and tried taking ranitidine a couple of times with a little relief, but not complete relief. denies any shortness of breath or cough, or pleuritic chest pain. Denies food bolus or dysphagia or dysphasia. Denies history of GERD. Patient reports drinks 4 cups coffee daily. Does not usually consume alcohol however on the cruise was drinking 5-10 mixed drinks daily. Reports was eating very rich foods that she does not typically consume. Patient also complaining of frontal headache, dizziness with standing, and nausea 2 days. Denies vomiting. Used scopolamine patch while on cruise. History of RLS, states was walking a lot while on vacation in since having aching of bilateral hips down to bilateral legs and increased restless leg symptoms at night. Patient states did not sleep well on a cruise secondary to restless legs. Also is carrying her luggage. Denies any injury, or falls. Patient states was having constipation and 3 days ago was able to have a BM however straining to have BM and when wipes noticed bright red blood on toilet paper and blood mixing with stool. Has since been having daily BMs and denies any melena, hematochezia, diarrhea. Denies any lower extremity edema. Denies history of CAD or blood clots. Denies fever/chills, diaphoresis, vomiting, syncope, vision changes, neck pain, orthopnea, palpitations, cough, sore throat, choking, otalgia, rhinorrhea, abdominal pain, rectal pain, paresthesias, weakness, extremity weakness, extremity edema, rashes, urinary symptoms, weight loss, night sweats. Denies ill contacts. In ER patient given aspirin, Zofran, 500 mL NSS, Tylenol, nitro half inch paste. Patient reports less chest tightness now, still with headache. Physical Exam (per Admitting): General Appearance: WD/WN, no apparent distress Head: normocephalic, atraumatic Eyes: normal inspection, PERRL, EOMI, sclerae normal ENT: hearing grossly normal, pharynx normal, + pertinent finding (mucous membranes moist) Neck: supple, no JVD, trachea midline Respiratory/Chest: lungs clear, normal breath sounds, no respiratory distress, + pertinent finding (mild tenderness to palpation mid to upper sternum , no rashes to chest noted) Cardiovascular: regular rate, rhythm, no murmur, normal peripheral pulses Abdomen/GI: normal bowel sounds, non tender, soft Extremities/Musculoskelatal: normal inspection, no calf tenderness, normal capillary refill, no pedal edema, normal range of motion, non-tender Neurologic/Psych: no motor/sensory deficits, alert, normal mood/affect, oriented x 3 Skin: normal color, warm/dry Hospital Course ATYPICAL CHEST DISCOMFORT Mostly related to dysphagia Troponinx2 negative EKG showed no ischemic changes LDL 143, Chol 216, HDL 42 Continue aspirin ECHO showed * Normal LV chamber size and wall thickness. * Normal LV systolic function, EF 60-65%. * No segmental left ventricular wall motion abnormalities are noted. * Normal diastolic function. * Mild aortic valve sclerosis without stenosis. * Mild mitral annular calcificatons. Dysphagia Food stuck in her throat this morning GI consulting and recommending to get EGD in a few weeks as an outpatient Speech on board Schedule for video and barium swallow on March 03 @ 10:30 Continue ranitidine daily DYSLIPIDEMIA LDL 143 Advised on low cholesterol diet Repeat lipip panel btw 3 to 6 months, if not at goal, will start on statin LOWERY ASSOCIATED WITH DIZZINESS Seems to related to sinus congestion CT head showed no acute intracranial abnormality Stable HEMATOCHEZIA Hgb stable DEPRESSION Continue lexapro RLS Continue klonopin HS prn restless legs DVT Prophylaxis Lovenox SQ Disposition Follow up with Dr. De Santiago (Dr. Patterson Colleague) on 02/25 @ 11:00 AM\\ Follow up with Gastro for EGD Schedule for video and barium swallow on March 03: Total time spent on discharge = 35 minutes This includes examination of the patient, discharge planning, medication reconciliation, and communication with other providers. Discharge Instructions Discharge Instructions Date of Service Feb 19, 2018. Admission Reason for Admission: Chest Pain, Dizziness Discharge Discharge Diagnosis / Problem: Atypical chest discomfort, Dysphagia Discharge Goals Goal(s): Decrease discomfort, Improve function, Improve disease control Activity Recommendations Activity Limitations: resume your previous activity (as tolerated) . Instructions / Follow-Up Instructions / Follow-Up Follow up with Dr. De Santiago (Dr. Patterson Colleague) on 02/25 @ 11:00 AM\\ Follow up with Gastroenterology for Endoscopy Schedule for video and barium swallow on March 03:30 AM Continue ranitidine daily Continue soft diet intake for now Avoid food that can trigger your symptoms (chocolate, caffeine, alcohol, acidic and/or spicy foods) Current Hospital Diet Patient's current hospital diet: AHA Diet (Heart Healthy) Discharge Diet Recommended Diet: AHA Diet (Heart Healthy) Pending Studies Studies pending at discharge: no Laboratory Results Lipid Panel Test 02/19/18 05:15 Range/Units Triglycerides Level 156 H 0-150 mg/dl Cholesterol Level 216 H 0-200 mg/dl HDL Cholesterol 42 mg/dl Cholesterol/HDL Ratio 5.1 LDL Cholesterol, Calculated 143 mg/dl Medical Emergencies . Who to Call and When: Medical Emergencies: If at any time you feel your situation is an emergency, please call 911 immediately. . Non-Emergent Contact Non-Emergency issues call your: Primary Care Provider Call Non-Emergent contact if: you have any medication questions . . "Provider Documentation" section prepared by Clyde Song. . Signed: Signed: The status of this report is Draft * If report status is Draft, the document has not been finalized by the responsible provider. Additional Copies To Naeem Patterson M.D.([facility])
== END 2018-02-19 16:25 | disposition home or self-care (01) ==
LOC: C.EDB 13:09 → C.2E 15:39 → ENRESERV 15:44
PROVIDERS: ADMIT Internal Medicine; ATTEND Internal Medicine
DX: R07.89 Other chest pain (principal); R13.10 Dysphagia, unspecified; R42 Dizziness and giddiness; F32.9 Major depressive disorder, single episode, unspecified; F17.210 Nicotine dependence, cigarettes, uncomplicated; K21.9 Gastro-esophageal reflux disease without esophagitis; K92.1 Melena; Z88.2 Allergy status to sulfonamides